=== PATIENT | female | born 1950 | race Caucasian/White ===

== ENCOUNTER 2018-01-15 04:10 | Emergency (ER) | payer MEDICARE, OTHER ==
[~2018-01-15] VITALS: Ht 160 cm; Wt 77.1 kg
[~2018-01-15 04:10] MED LIST: BENICAR5 MG PO; DILANTIN100 MG PO; LEVAQUIN500 MG PO; LEXAPRO10 MG PO; LUTEIN6 MG PO; MACRODANTIN100 MG PO; METFORMIN HCL500 MG PO; ULTRAM 50MG50 MG PO
== END 2018-01-15 05:17 | disposition home or self-care (01) ==
LOC: ER 04:10
DX: M54.42 Lumbago with sciatica, left side (principal); I10 Essential (primary) hypertension; E11.9 Type 2 diabetes mellitus without complications; G40.909 Epilepsy, unspecified, not intractable, without status epilepticus
CPT/HCPCS: 99284

== ENCOUNTER 2018-02-20 21:19 | Emergency (ER) | payer MEDICARE, OTHER ==
[~2018-02-20] VITALS: Ht 160 cm; Wt 77.1 kg
--- OUTSIDE RECORDS SUMMARY | 2018-02-20 21:22 | XMS REPORT | Continuity of Care Document ---
Author Author [facility] Organization [facility] Address [address] [place] [address] Phone Unavailable Care Team Providers Care Seam Rubbing Machine Operator Name Role Phone CECIL MUNIZ DO PCP Insurance Providers Guarantor Kassie Manzanares Address [address] [place] [address] Email [email or web address] Payer Medicare A & B Policy Number [id number] Subscriber's Name Kassie Manzanares Relationship 18 Self / Same As Patient Group Number [id number] Group Name SARAY NEELY DDBrendon Effective Date 16 Payer Ppo Policy Number [id number] Subscriber's Name Marisol Manzanares Relationship 01 Effective Date 09 Advance Directives Directive Response Recorded Date/Time Does the patient have an advance directive? No 03/22/14 8:43am If yes, is advance directive on file with [facility]? No 03/22/14 8:43am If not on file with [facility] will patient provide a copy? No 03/22/14 8:43am Do you have a Directive to Physician? No 01/15/18 4:07am Do you have a Medical Power of Home Comfort Advisor? No 01/15/18 4:07am Do you have an out of hospital Do Not Resuscitate Order? No 01/15/18 4:07am Do you have any special needs we should be aware of? No 01/15/18 4:07am Do you have a support person here with you today? Yes 01/15/18 4:07am Did patient receive Notice of Privacy Practices? Yes 01/15/18 4:07am Did patient receive patient rights and responsibilities? Yes 01/15/18 4:07am Problems No problem information available. Medications Current Home Medications Medication Dose Units Route Directions Days Qty Instructions Start Date Escitalopram Oxalate (Lexapro) 10 Mg Tablet 5 Mg Oral Daily 30 Tab Metformin Hcl 500 Mg Tablet 500 Mg Oral Twice A Day 60 Tab Olmesartan Medoxomil (Benicar) 5 Mg Tablet 10 Mg Oral Daily Phenytoin Sodium Extended (Dilantin) 100 Mg Capsule 200 Mg Oral Twice A Day Past Home Medications Medication Directions Ordered Status Levofloxacin (Levaquin) 500 Mg Tablet, 500 Mg Oral Daily Discontinued Lutein 6 Mg Capsule, 1 Cap Oral Twice A Day Discontinued Nitrofurantoin Macrocrystal (Macrodantin) 100 Mg Capsule, 100 Mg Oral Twice A Day Discontinued Tramadol Hcl (Ultram 50MG*) 50 Mg Tab, 50 Mg Oral Every 8 Hours Discontinued Social History No social history information available. Hospital Discharge Instructions No hospital discharge instruction information available. Plan of Care Discharge Date 01/15/18 5:17am Disposition HOME, SELF-CARE Condition at Discharge Stable Instructions/Education Provided Sciatica Forms Provided Work/School Excuse Prescriptions See Medication Section Referrals FLAVIOCECIL DO Address: [address] [place] [address] Additional Instructions/Education FOLLOW UP WITH PRIMARY CARE PHYSICIAN. TAKE ALL MEDICATION DIRECTED. Functional Status No functional status information available. Allergies, Adverse Reactions, Alerts Allergen Type Severity Reaction Status Last Updated Ofloxacin Allergy Mild Hallucinate Active 01/24/15 Immunizations No immunization information available. Vital Signs Acute Vital Signs Vital Response Date/Time Height 5 ft 3 in 01/15/2018 4:17am Weight 170 lb 01/15/2018 4:17am Body Mass Index 30.1 kg/m^2 01/15/2018 4:17am Results Laboratory Results Test Name Result Units Flags Reference Collection Date/Time Result Date/ Time Comments White Blood Count 7.33 x10e3/uL 4.8-10.8 05/05/2017 4:45pm 05/05/2017 5 :05pm Red Blood Count 4.28 x10e6/uL 3.6-5.1 05/05/2017 4:45pm 05/05/2017 5: 05pm Hemoglobin 11.6 g/dL L 12.0-16.0 05/05/2017 4:45pm 05/05/2017 5:05pm Hematocrit 36.1 % 34.2-44.1 05/05/2017 4:45pm 05/05/2017 5:05pm Mean Corpuscular Volume 84.3 fL 81-99 05/05/2017 4:45pm 05/05/2017 5: 05pm Mean Corpuscular Hemoglobin 27.1 pg L 28-32 05/05/2017 4:45pm 2016 5:05pm Mean Corpuscular Hemoglobin Concent 32.1 g/dL 31-35 05/05/2017 4:45pm 05/05/2017 5:05pm Red Cell Distribution Width 14.1 % 11.7-14.4 05/05/2017 4:45pm 2016 5:05pm Platelet Count 315 x10e3/uL 140-360 05/05/2017 4:45pm 05/05/2017 5: 05pm Neutrophils (%) (Auto) 58.3 % 38.7-80.0 05/05/2017 4:45pm 05/05/2017 5: 05pm Lymphocytes (%) (Auto) 31.1 % 18.0-39.1 05/05/2017 4:45pm 05/05/2017 5: 05pm Monocytes (%) (Auto) 10.1 % 4.4-11.3 05/05/2017 4:45pm 05/05/2017 5: 05pm Eosinophils (%) (Auto) 0.1 % 0.0-6.0 05/05/2017 4:45pm 05/05/2017 5: 05pm Basophils (%) (Auto) 0.3 % 0.0-1.0 05/05/2017 4:45pm 05/05/2017 5:05pm IM GRANULOCYTES % 0.1 % 0.0-1.0 05/05/2017 4:45pm 05/05/2017 5:05pm Neutrophils # (Auto) 4.3 2.1-6.9 05/05/2017 4:45pm 05/05/2017 5:05pm Lymphocytes # (Auto) 2.3 1.0-3.2 05/05/2017 4:45pm 05/05/2017 5:05pm Monocytes # (Auto) 0.7 0.2-0.8 05/05/2017 4:45pm 05/05/2017 5:05pm Eosinophils # (Auto) 0.0 0.0-0.4 05/05/2017 4:45pm 05/05/2017 5:05pm Basophils # (Auto) 0.0 0.0-0.1 05/05/2017 4:45pm 05/05/2017 5:05pm Absolute Immature Granulocyte (auto 0.01 x10e3/uL 0-0.1 05/05/2017 4: 45pm 05/05/2017 5:05pm Bedside Glucose 104 mg/dL 70-120 05/10/2017 2:40pm 05/10/2017 3:10pm Meter ID: [id number] Blood Urea Nitrogen 12 mg/dL 7-05/12/2017 3:50pm 05/12/2017 4:20pm Creatinine 0.75 mg/dL 0.57-1.11 05/12/2017 3:50pm 05/12/2017 4:20pm BUN/Creatinine Ratio 16 6-25 05/12/2017 3:50pm 05/12/2017 4:20pm Estimat Glomerular Filtration Rate > 60 ML/MIN 60- 05/12/2017 3:50pm 4:20pm Ranges were taken from the National Kidney Disease Education Program and the National Kidney Foundation literature. Reference ranges: 60 or greater: Normal 16-59 (for 3 consecutive months): Chronic kidney disease 15 or less: Kidney failure Procedures Procedure Status Date Provider(s) Computed tomography of abdomen and pelvis with contrast Active 05/12/17 COREY GRAY MD Encounters Encounter Location Arrival/Admit Date Discharge/Depart Date Attending Provider Departed Emergency Room [facility] 01/15/18 4:10am 5:17am JAG RODRIGUEZ MD Registered Clinic [facility] 05/12/17 3:17pm COREY GRAY MD Registered Surgical Day Care [facility] 05/10/17 8:35am COREY GRAY MD
[2018-02-20] MEDS ORDERED: HYDROMORPHONE 1MG/1ML INJ IM STA (21:45)
[2018-02-20] MEDS ORDERED: ONDANSETRON HCL 4 MG ORAL DISINTEGRATING TAB PO ONE (21:45)
[2018-02-20 22:54] LABS: CLARITY,URINE CLEAR (CLEAR); COLOR,URINE YELLOW (YELLOW); KETONES,URINE NEGATIVE (NEGATIVE); LEUKOCYTE ESTERASE ,URINE NEGATIVE (NEGATIVE); NITRITE,URINE NEGATIVE (NEGATIVE); PROTEIN,URINE DIPSTICK NEGATIVE (NEGATIVE)
[2018-02-20 22:55] LABS: BILIRUBIN,URINE NEGATIVE (NEGATIVE); URINE UROBILINOGEN 0.2 mg/dL (0.2 - 1)
--- NOTE | 2018-02-20 22:55 | Diagnostic Imaging Report ---
EXAM: PELVIS AP 1-2 VIEWS INDICATION: Fall, lower back pain COMPARISON: None FINDINGS: BONES: No acute fractures. JOINTS: Degenerative changes of the bilateral hips. SOFT TISSUES: Normal IMPRESSION: No acute pelvic fracture. Signed by: Dr. Soumya Islas M.D. on 02/20/2018 10:51 PM
--- NOTE | 2018-02-20 22:56 | Diagnostic Imaging Report ---
EXAM: LUMBAR SPINE, 5 views INDICATION: Fall, lower back pain COMPARISON: None FINDINGS: BONES: Five lumbar-type vertebral bodies. Lumbarization of S1. The alignment is within normal limits. No acute displaced fractures. No lytic or blastic lesions. DISCS: Multilevel anterior osteophytes. JOINTS: Multilevel bilateral facet arthropathy, predominantly L4/L5 and L5/S1. SOFT TISSUES: Surgical sutures right midabdomen. IMPRESSION: No acute lumbar spine radiographic findings. Signed by: Dr. Soumya Islas M.D. on 02/20/2018 10:52 PM
[2018-02-20 23:03] LABS: BACTERIA,URINE PRESENT /HPF; EPITHELIAL CELLS,URINE RARE /LPF; RBC,URINE 0-5 /HPF (0-5); WBC,URINE (MAN) 0-5 /HPF (0-5)
[2018-02-20] MEDS ORDERED: HYDROCODONE/APAP 10MG-325MG TAB PO ONE (23:45)
== END 2018-02-21 01:00 | disposition home or self-care (01) ==
LOC: ER 21:19
DX: M54.5 Low back pain (principal); S33.5XXA Sprain of ligaments of lumbar spine, initial encounter; W18.30XA Fall on same level, unspecified, initial encounter; Y92.008 Other place in unspecified non-institutional (private) residence as the place of occurrence of the external cause; I10 Essential (primary) hypertension; E11.9 Type 2 diabetes mellitus without complications; Z85.038 Personal history of other malignant neoplasm of large intestine; Z86.718 Personal history of other venous thrombosis and embolism
CPT/HCPCS: 72110; 72170; 81001; 99284; J1170

== ENCOUNTER 2018-03-22 05:54 | Emergency (ER) | payer MEDICARE, OTHER ==
[~2018-03-22] VITALS: Ht 160 cm; Wt 77.1 kg
--- OUTSIDE RECORDS SUMMARY | 2018-03-22 05:57 | XMS REPORT | Continuity of Care Document ---
Author Author [facility] Organization [facility] Address [address] [place] [address] Phone Unavailable Care Team Providers Care Sourcing Consultant Name Role Phone CECIL MUNIZ DO PCP Insurance Providers Guarantor Kassie Manzanares Address [address] [place] [address] Email [email or web address] Payer Medicare A & B Policy Number [id number] Subscriber's Name Kassie Manzanares Relationship 18 Self / Same As Patient Group Number [id number] Group Name SARAY NEELY DDBrendon Effective Date 16 Payer Ppo Policy Number [id number] Subscriber's Name Marisol Manzanares Relationship 01 Effective Date 09 Advance Directives Directive Response Recorded Date/Time Does the patient have an advance directive? No 03/22/14 8:43am If yes, is advance directive on file with [facility]? No 03/22/14 8:43am If not on file with [facility] will patient provide a copy? No 03/22/14 8:43am Do you have a Directive to Physician? No 02/20/18 9:17pm Do you have a Medical Power of Furnace Operator And Tender? No 02/20/18 9:17pm Do you have an out of hospital Do Not Resuscitate Order? No 02/20/18 9:17pm Do you have any special needs we should be aware of? No 02/20/18 9:17pm Do you have a support person here with you today? Yes 02/20/18 9:17pm Did patient receive Notice of Privacy Practices? Yes 02/20/18 9:17pm Did patient receive patient rights and responsibilities? Yes 02/20/18 9:17pm Problems No problem information available. Medications Current [...] information available. Plan of Care Discharge Date 02/21/18 1:00am Disposition HOME, SELF-CARE Condition at Discharge Stable Instructions/Education Provided Back Pain Forms Provided Work/School Excuse Prescriptions See Medication Section Referrals FLAVIOCECIL DO Address: [address] [place] [address] Additional Instructions/Education FOLLOW UP WITH PRIMARY CARE PHYSICIAN. TAKE ALL MEDICATION DIRECTED. Functional Status No functional status information available. Allergies, Adverse Reactions, Alerts Allergen Type Severity Reaction Status Last Updated Ofloxacin Allergy Mild Hallucinate Active 01/24/15 Immunizations No immunization information available. Vital Signs Acute Vital Signs Vital Response Date/Time Height 5 ft 3 in 02/20/2018 9:38pm Weight 170 lb 02/20/2018 9:38pm Body Mass Index 30.1 kg/m^2 02/20/2018 9:38pm Results Laboratory Results Test Name Result Units [...] 70-120 05/10/2017 2:40pm 05/10/2017 3:10pm Meter ID: [id number] Blood Urea Nitrogen 12 mg/dL 7-05/12/2017 3:50pm [...] kidney disease 15 or less: Kidney failure Urine Color YELLOW YELLOW 02/20/2018 10:40pm 02/20/2018 10:56pm Urine Clarity CLEAR CLEAR 02/20/2018 10:40pm 02/20/2018 10:56pm Urine Specific Villas 1.030 H 1.010-1.025 02/20/2018 10:40pm 2017 10:56pm Urine pH 6 5 - 7 02/20/2018 10:40pm 02/20/2018 10:56pm Urine Leukocyte Esterase NEGATIVE NEGATIVE 02/20/2018 10:40pm 2017 10:56pm Urine Nitrite NEGATIVE NEGATIVE 02/20/2018 10:40pm 02/20/2018 10: 56pm Urine Protein NEGATIVE NEGATIVE 02/20/2018 10:40pm 02/20/2018 10: 56pm Urine Glucose (UA) NEGATIVE NEGATIVE 02/20/2018 10:40pm 02/20/2018 10 :56pm Urine Ketones NEGATIVE NEGATIVE 02/20/2018 10:40pm 02/20/2018 10: 56pm Urine Urobilinogen 0.2 mg/dL 0.2 - 1 02/20/2018 10:40pm 02/20/2018 10: 56pm Urine Bilirubin NEGATIVE NEGATIVE 02/20/2018 10:40pm 02/20/2018 10: 56pm Urine Blood NEGATIVE NEGATIVE 02/20/2018 10:40pm 02/20/2018 10:56pm Urine WBC 0-5 /HPF 0-5 02/20/2018 10:40pm 02/20/2018 11:04pm Urine RBC 0-5 /HPF 0-5 02/20/2018 10:40pm 02/20/2018 11:04pm Urine Bacteria PRESENT /HPF NONE 02/20/2018 10:40pm 02/20/2018 11:04pm Urine Epithelial Cells RARE /LPF NONE 02/20/2018 10:40pm 02/20/2018 11: 04pm Procedures Procedure Status Date Provider(s) Computed tomography of abdomen and pelvis with contrast Active 05/12/17 COREY GRAY MD Encounters Encounter Location Arrival/Admit Date Discharge/Depart Date Attending Provider Departed Emergency [facility] 02/20/18 9:19pm 1:00am MELISSA RAY MD Departed Emergency Room [facility] 01/15/18 4:10am 5:17am JAG RODRIGUEZ MD Registered Clinic [facility] 05/12/17 3:17pm COREY GRAY MD Registered Surgical Day Care [facility] 05/10/17 8:35am COREY GRAY MD
--- OUTSIDE RECORDS SUMMARY | 2018-03-22 05:57 | XMS REPORT ---
Author Author [facility] Address Unknown Phone Unavailable Care Team Providers Care Director Of Recruiting Name Role Phone MELISSA RAY Unavailable Unavailable Problems This patient has no known problems. Allergies, Adverse Reactions, Alerts This patient has no known allergies or adverse reactions. Medications This patient has no known medications. Results Test Description Test Time Test Comments Text Results Atomic Results Result Comments PELVIS AP 1-2 VIEWS [place] [address] Patient Name: GAVIN ALBARRAN MR #: [id number] : 1950 Age/Sex: 67/F Req #: [id number] Adm Physician: Ordered by: MELISSA RAY MD Report #: [id number] Location: ER Room/Bed: Procedure: [id number] DX/PELVIS AP 1-2 VIEWS Exam Date: 02/20/18 Exam Time: 0 REPORT STATUS: Signed EXAM: PELVIS AP 1-2 VIEWS INDICATION: Fall, lower back pain COMPARISON: None FINDINGS: BONES: No acute fractures. JOINTS: Degenerative changes of the bilateral hips. SOFT TISSUES: Normal IMPRESSION: No acute pelvic fracture. Signed by: Dr. Shauna Islas M.D. on 02/20/2018 10:51 PM Dictated By: SHAUNA ISLAS MD 51 Transcribed By: ZULEYKA on 02/20/182250 COPY TO: MELISSA RAY MD SP LUMBAR, COMPLETE MIN 4VW [place] [address] Patient Name: GAVIN ALBARRAN MR #: [id number] : 1950 Age/Sex: 67/F Req #: [id number] Adm Physician: Ordered by: MELISSA RAY MD Report #: [id number] Location: ER Room/Bed: Procedure: [id number] DX/SP LUMBAR, COMPLETE MIN 4VW Exam Date: 02/20/18 Exam Time: 2219 REPORT STATUS: Signed EXAM: LUMBAR SPINE, 5 views INDICATION: Fall, lower back pain COMPARISON: None FINDINGS: BONES: Five lumbar-type vertebral bodies. Lumbarization of S1. The alignment is within normal limits. No acute displaced fractures. No lytic or blastic lesions. DISCS: Multilevel anterior osteophytes. JOINTS: Multilevel bilateral facet arthropathy, predominantly L4/L5 and L5/ S1. SOFT TISSUES: Surgical sutures right midabdomen. IMPRESSION: No acute lumbar spine radiographic findings. Signed by: Dr. Shauna Islas M.D. on 02/20/2018 10:52 PM Dictated By: SHAUNA ISLAS MD 51 Transcribed By: ZULEYKA on 02/20/182251 COPY TO: MELISSA RAY MD
[2018-03-22] MEDS ORDERED: HYDROCODONE/APAP 10MG-325MG TAB PO ONE (06:45)
[2018-03-22] MEDS ORDERED: ORPHENADRINE CITRATE 30 MG/ML VIAL IM ONE (06:45)
[2018-03-22 07:19] VITALS: BP 169/79
== END 2018-03-22 08:37 | disposition home or self-care (01) ==
LOC: ER 05:54
DX: M79.652 Pain in left thigh (principal); S76.112A Strain of left quadriceps muscle, fascia and tendon, initial encounter; X50.3XXA Overexertion from repetitive movements, initial encounter; X50.9XXA Other and unspecified overexertion or strenuous movements or postures, initial encounter; Y93.B9 Activity, other involving muscle strengthening exercises
CPT/HCPCS: 99283; J2360

== ENCOUNTER → 2018-05-16 | Day surgery (SDC) | payer MEDICARE, OTHER ==
[2018-05-12 16:15] LABS: BASOPHILS % 0.5 % (0.0-1.0); EOSINOPHILS # (AUTO) 0.1 (0.0-0.4); HEMATOCRIT 42.9 % (34.2-44.1); HEMOGLOBIN 13.8 g/dL (12.0-16.0); LYMPHOCYTES # (AUTO) 2.1 (1.0-3.2); LYMPHOCYTES % 35.2 % (18.0-39.1); MEAN CORPUSCULAR HEMOGLOBIN 27.7 pg (28-32); MEAN CORPUSCULAR HGB CONC 32.2 g/dL (31-35); MONOCYTES # (AUTO) 0.8 (0.2-0.8); MONOCYTES % 12.8 % (4.4-11.3); NEUTROPHILS % 50.3 % (38.7-80.0); PLATELET COUNT 255 x10e3/uL (140-360); RED BLOOD COUNT 4.99 x10e6/uL (3.6-5.1); RED CELL DISTRIBUTION WIDTH 17.1 % (11.7-14.4)
[~2018-05-16] MED LIST changes: +FENTANYL CITRATE/PF 100MCG/2 ML INJ ONE; +MELOXICAM7.5 MG PO; +MIDAZOLAM HCL 2 MG/2 ML VIAL ONE; +PANTOPRAZOLE SO40 MG PO; +PROPOFOL IV EMULSION 10 MG/ML 50 ML VIAL ONE; +ZETIA10 MG PO
--- NOTE | 2018-05-16 13:14 | Operative Report ---
DATE OF PROCEDURE: May 16, 2018 REFERRING PHYSICIAN: Dr. Aleksandar Muniz PROCEDURE PERFORMED: Colonoscopy and polypectomy. INDICATIONS FOR COLONOSCOPY: Colorectal cancer surveillance, status post colon resection for colon cancer. MEDICATION: Patient was done under MAC. Please see anesthesiologist's note. PROCEDURE: With the patient in the left lateral decubitus position, the flexible fiberoptic Olympus colonoscope was inserted into the rectum with ease and advanced all the way to the ileocolic anastomosis. Anastomotic site appeared intact without evidence of recurrence. The scope was then withdrawn slowly, and some scattered diverticular disease was noted in the transverse, descending and sigmoid colon. One polyp was snared from the sigmoid colon. The rectum appeared to be within normal limits. The scope was then retroflexed into the distal rectum, and the area around the dentate line appeared to be within normal limits. The scope was then straightened out. It was subsequently withdrawn. Patient tolerated the procedure well. IMPRESSION 1. Ileocolic anastomosis intact. No evidence of recurrence. 2. Diverticulosis. 3. Sigmoid colon polyps, snared. PLAN: Follow up histology. Initiate high-fiber and low-fat diet. Initiate high-fiber supplement. Patient might benefit from a followup colonoscopy in 3 years. Job#: [id number] RI cc:CECIL MUNIZ DO
== END | disposition home or self-care (01) ==
LOC: OR 10:23
PROVIDERS: ATTEND Internal Medicine Gastroenterology
DX: Z12.11 Encounter for screening for malignant neoplasm of colon (principal); K63.5 Polyp of colon; Z98.0 Intestinal bypass and anastomosis status; Z85.038 Personal history of other malignant neoplasm of large intestine; K57.30 Diverticulosis of large intestine without perforation or abscess without bleeding; K64.8 Other hemorrhoids; G40.909 Epilepsy, unspecified, not intractable, without status epilepticus; I10 Essential (primary) hypertension; E11.9 Type 2 diabetes mellitus without complications; Z88.1 Allergy status to other antibiotic agents; Z88.8 Allergy status to other drugs, medicaments and biological substances; Z01.810 Encounter for preprocedural cardiovascular examination; Z01.812 Encounter for preprocedural laboratory examination; Z68.29 Body mass index [BMI] 29.0-29.9, adult; Z80.0 Family history of malignant neoplasm of digestive organs
CPT/HCPCS: 36415; 45385; 85025; 88305; 93005; J2250

== ENCOUNTER → 2021-08-24 | Outpatient (CLI) | payer MEDICARE, OTHER ==
[~2021-08-24] MED LIST changes: -FENTANYL CITRATE/PF 100MCG/2 ML INJ ONE; -MIDAZOLAM HCL 2 MG/2 ML VIAL ONE; -PROPOFOL IV EMULSION 10 MG/ML 50 ML VIAL ONE
== END ==
LOC: DX 10:13
PROVIDERS: ATTEND Family Medicine
DX: M85.88 Other specified disorders of bone density and structure, other site (principal); E55.9 Vitamin D deficiency, unspecified
CPT/HCPCS: 77080

== ENCOUNTER → 2022-05-08 | Day surgery (SDC) | payer MEDICARE, OTHER ==
[2022-05-06 11:42] LABS: BASOPHILS % 0.7 % (0.0-1.0); HEMATOCRIT 45.5 % (34.2-44.1); HEMOGLOBIN 14.7 g/dL (12.0-16.0); LYMPHOCYTES # (AUTO) 1.5 (1.0-3.2); LYMPHOCYTES % 34.4 % (18.0-39.1); MEAN CORPUSCULAR HEMOGLOBIN 31.4 pg (28-32); MEAN CORPUSCULAR HGB CONC 32.3 g/dL (31-35); MEAN CORPUSCULAR VOLUME 97.2 fL (81-99); MONOCYTES # (AUTO) 0.5 (0.2-0.8); MONOCYTES % 10.7 % (4.4-11.3); NEUTROPHILS # (AUTO) 2.4 (2.1-6.9); PLATELET COUNT 199 x10e3/uL (140-360); RED BLOOD COUNT 4.68 x10e6/uL (3.6-5.1); RED CELL DISTRIBUTION WIDTH 12.3 % (11.7-14.4)
[~2022-05-08] MED LIST changes: +ASPIRIN81 MG PO; +BENICAR20 MG PO; +CLOPIDOGREL75 MG PO; +COQ-10100 MG PO; +EPHEDRINE SULFATE INJ 50 MG/ML VIAL ONE; +GLIPIZIDE5 MG PO; +HYOSCYAMINE SULFATE 0.5 MG/ML INJ ONE; +KEPPRA750 MG PO; +MULTIVITAMIN1 EACH PO; +PRAVASTATIN SOD40 MG PO; +PRESERVISION A1 EACH PO; +PROPOFOL IV EMULSION 10 MG/ML 20 ML VIAL ONE; +TYLENOL #3 PO
[2022-05-08 10:45] VITALS: BP 124/65
== END | disposition home or self-care (01) ==
LOC: OR 07:05
PROVIDERS: ATTEND Internal Medicine Gastroenterology
DX: Z12.11 Encounter for screening for malignant neoplasm of colon (principal); Z85.038 Personal history of other malignant neoplasm of large intestine; Z86.010 Personal history of colon polyps; K31.7 Polyp of stomach and duodenum; K29.70 Gastritis, unspecified, without bleeding; Z98.0 Intestinal bypass and anastomosis status; K21.9 Gastro-esophageal reflux disease without esophagitis; K20.90 Esophagitis, unspecified without bleeding; K44.9 Diaphragmatic hernia without obstruction or gangrene; K57.30 Diverticulosis of large intestine without perforation or abscess without bleeding; K64.8 Other hemorrhoids; I25.10 Atherosclerotic heart disease of native coronary artery without angina pectoris; I10 Essential (primary) hypertension; D64.9 Anemia, unspecified; E11.9 Type 2 diabetes mellitus without complications; G40.909 Epilepsy, unspecified, not intractable, without status epilepticus; E03.9 Hypothyroidism, unspecified; F41.9 Anxiety disorder, unspecified; Z88.8 Allergy status to other drugs, medicaments and biological substances; Z01.810 Encounter for preprocedural cardiovascular examination; Z01.812 Encounter for preprocedural laboratory examination; Z20.822 Contact with and (suspected) exposure to COVID-19; Z79.02 Long term (current) use of antithrombotics/antiplatelets; Z79.84 Long term (current) use of oral hypoglycemic drugs; Z79.899 Other long term (current) drug therapy; Z68.29 Body mass index [BMI] 29.0-29.9, adult
CPT/HCPCS: 43239; G0105; 0223U; 36415; 45378; 82948; 85025; 88305; 88312; 88342; 93005; J1980